=== PATIENT | female | born 1950 | race Caucasian/White ===

== ENCOUNTER 2017-05-26 23:00 | Emergency (ER) | payer MEDICARE ==
[2017-05-27 01:30] VITALS: BP 177/81
--- NOTE | 2017-05-27 04:24 | ED ---
Kyle Dooley Angela, scribed for Vasiliy Neville MD on 05/27/17 at 0001 . Hypertension - HPI Summary HPI Summary: This pt is a 67 y/o female presenting to [facility] c/o high blood pressure today. Pt reports she was sitting down watching TV today when she felt pressure on her face. She took her blood pressure and it was 200/100. Pt states she usually feels pressure on her face when she has elevated blood pressure. Denies chest pain, SOB, nausea, hematuria, difficulty urinating. Pt reports she wrenched her back approximately 1 week ago as she went into her car to brass pickler something. Denies abd pain. PMHx: HTN and stroke (2011). Pt states she takes Lisinopril 30 mg (has been taking it for 1 year now). - History of Current Complaint Chief Complaint: EDHypertension Stated Complaint: HIGH BLOOD PRESSURE Hx Obtained From: Patient Onset/Duration: Started Hours Ago, Still Present Timing: Lasting Hours Reported Blood Pressure Prior To Arrival: 200/100 Aggravating Factor(s): Nothing Alleviating Factor(s): Nothing Associated Signs & Symptoms: Other: - POS: pressure on face. NEG: chest pain, SOB, nausea, hematuria, difficulty urinating. Current Medications: ACEI - Lisinopril - Allergies/Home Medications Allergies/Adverse Reactions: Allergies Allergy/AdvReac Type Severity Reaction Status Date / Time Diphenhydramine Allergy Unknown UNK Verified 05/17/12 10:30 [From Benadryl] Home Medications: Home Medications Lisinopril [Lisinopril] 10 mg PO BEDTIME 05/27/17 [History Confirmed 05/27/17] PMH/Surg Hx/FS Hx/Imm Hx Endocrine/Hematology History: Denies: Hx Diabetes Cardiovascular History: Reports: Hx Hypertension - W/MEDS, Other Cardiovascular Problems/Disorders - CVA Neurological History: Reports: Hx CVA Infectious Disease History: No Infectious Disease History: Denies: Traveled Outside the [place] in Last 30 Days - Family History Known Family History: Positive: Cardiac Disease - CAD - Social History Alcohol Use: None Substance Use Type: Reports: None Hx Tobacco Use: Yes Smoking Status (MU): Never Smoked Tobacco Review of Systems Negative: Fever Cardiovascular: Other - elevated blood pressure Negative: Chest Pain Negative: Shortness Of Breath Negative: Abdominal Pain, Nausea Negative: hematuria, other - difficulty urinating Musculoskeletal: Other - back pain All Other Systems Reviewed And Are Negative: Yes Physical Exam - Summary Physical Exam Summary: Appearance: Well-appearing, no distress, Well-nourished Skin: Warm, color reflects adequate perfusion Head: Normal Head/Face inspection Eyes: Conjunctiva clear ENT: Normal inspection Neck: Supple, no nodes, no JVD. Respiratory: Lungs clear, Normal breath sounds, no respiratory distress Cardio: RRR, No murmur, pulses normal, brisk capillary refill Abdomen: soft, nontender, no guarding, no rebound Bowel sounds: present Musculoskeletal: Strength Intact/ ROM intact. No calf tenderness. No edema. Neuro: Alert, muscle tone normal, facial symmetry, speech normal, sensory/motor intact Psychological: Normal Triage Information Reviewed: Yes Vital Signs On Initial Exam: Initial Vitals Temp Pulse Resp BP Pulse Ox 98.2 F 88 18 199/80 96 05/26/17 23:07 05/26/17 23:07 05/26/17 23:07 05/26/17 23:07 05/26/17 23:07 Vital Signs Reviewed: Yes Diagnostics - Vital Signs Vital Signs Temp Pulse Resp BP Pulse Ox 05/26/17 23:50 78 23 95 05/26/17 23:48 189/91 05/26/17 23:07 98.2 F 88 18 199/80 96 - Laboratory Lab Statement: Any lab studies that have been ordered have been reviewed, and results considered in the medical decision making process. Re-Evaluation - Re-Evaluation First Eval Re-Evaluation Time: 01:13 Change: Improved Comment: Pt resting comfortably in bed. pt copntinues to be asymptomatic with BP 159/80's. Pt will f/u with her PCP tomorrow for repeat BP evaluation. Hypertension Course/Dx - Course Assessment/Plan: Pt with asymptomatic hypertension. pt advised to f.u with her PCP as scheduled tomorrow for repeat evaluation. - Diagnoses Differential Diagnosis/HQI PQRI: Hypertension, Hypertensive Crisis, Hypertensive Urgency Provider Diagnoses: Hypertension Discharge - Sign-Out/Discharge Documenting (check all that apply): Discharge - discharge to home - Discharge Plan Condition: Improved Disposition: HOME Patient Education Materials: Hypertension (ED) Referrals: Jayla Frey MD [Medical Doctor] - 2 Days - Billing Disposition and Condition Condition: IMPROVED Disposition: HOME The documentation as recorded by the Kyle benítez Angela accurately reflects the service I personally performed and the decisions made by , Vasiliy Neville MD.
== END 2017-05-27 01:30 | disposition home or self-care (01) ==
LOC: ED 23:00
DX: I10 Essential (primary) hypertension (principal)
CPT/HCPCS: 99282

== ENCOUNTER 2018-06-01 17:09 | Emergency (ER) | payer MEDICARE ==
--- NOTE | 2018-06-01 17:36 | ED ---
Hypertension - HPI Summary HPI Summary: A 68 y/o female presents to [facility] with a chief complaint of high blood pressure since yesterday. She reports that yesterday she took all of her medications in the morning instead of her usual 2 pills in the morning and 2 pills at night. She takes Lisinopril and Amlodipine. She rates her pain as a 0/10 in severity. She denies CP, SOB or headache. She reports dizziness, claiming that she feels off balance. - History of Current Complaint Chief Complaint: EDHypertension Stated Complaint: BP HIGH,DIZZY PER PT Time Seen by Provider: 06/01/18 17:29 Hx Obtained From: Patient Onset/Duration: Started Hours Ago, Still Present Timing: Constant Reported Blood Pressure Prior To Arrival: 183/78 at triage Aggravating Factor(s): Nothing Alleviating Factor(s): Nothing Associated Signs & Symptoms: Negative - CP, SOB, headache, Dizziness - Allergies/Home Medications Allergies/Adverse Reactions: Allergies Allergy/AdvReac Type Severity Reaction Status Date / Time diphenhydramine Allergy Unknown Verified 06/01/18 17:18 Reaction Details Home Medications: Home Medications Pravastatin Sodium 20 mg PO DAILY 06/01/18 [History Confirmed 06/01/18] amLODIPine TAB* [Norvasc 5 mg TAB*] 2.5 mg PO DAILY 06/01/18 [History Confirmed 06/01/18] PMH/Surg Hx/FS Hx/Imm Hx Endocrine/Hematology History: Denies: Hx Diabetes Cardiovascular History: Reports: Hx Hypertension - W/MEDS, Other Cardiovascular Problems/Disorders - CVA Neurological History: Reports: Hx CVA Infectious Disease History: No Infectious Disease History: Denies: Traveled Outside the [place] in Last 30 Days - Family History Known Family History: Positive: Cardiac Disease - CAD - Social History Alcohol Use: None Substance Use Type: Reports: None Hx Tobacco Use: Yes Smoking Status (MU): Never Smoked Tobacco Review of Systems Negative: Fever Negative: Chest Pain Negative: Shortness Of Breath Neurological: Other - positive: dizziness Negative: Headache All Other Systems Reviewed And Are Negative: Yes Physical Exam - Summary Physical Exam Summary: VITAL SIGNS: Reviewed. GENERAL: Patient is a well-developed and nourished FEMALE who is lying comfortable in the stretcher. Patient is not in any acute respiratory distress. HEAD AND FACE: No signs of trauma. No ecchymosis, hematomas or skull depressions. No sinus tenderness. EYES: PERRLA, EOMI x 2, No injected conjunctiva, no nystagmus. EARS: Hearing grossly intact. Ear canals and tympanic membranes are within normal limits. MOUTH: Oropharynx within normal limits. NECK: Supple, trachea is midline, no adenopathy, no JVD, no carotid bruit, no c- spine tenderness, neck with full ROM. CHEST: Symmetric, no tenderness at palpation LUNGS: Clear to auscultation bilaterally. No wheezing or crackles. CVS: Regular rate and rhythm, S1 and S2 present, no murmurs or gallops appreciated. ABDOMEN: Soft, non-tender. No signs of distention. No rebound no guarding, and no masses palpated. Bowel sounds are normal. EXTREMITIES: FROM in all major joints, no edema, no cyanosis or clubbing. NEURO: Alert and oriented x 3. No acute neurological deficits. Speech is normal and follows commands. SKIN: Dry and warm Triage Information Reviewed: Yes Vital Signs On Initial Exam: Initial Vitals Temp Pulse Resp BP Pulse Ox 98.5 F 77 16 183/78 99 06/01/18 17:15 06/01/18 17:15 06/01/18 17:15 06/01/18 17:15 06/01/18 17:15 Vital Signs Reviewed: Yes - Franko Coma Scale Best Eye Response: 4 - Spontaneous Best Motor Response: 6 - Obeys Commands Best Verbal Response: 5 - Oriented Coma Scale Total: 15 Diagnostics - Vital Signs Vital Signs Temp Pulse Resp BP Pulse Ox 06/01/18 17:15 98.5 F 77 16 183/78 99 - Laboratory Result Diagrams: 06/01/18 17:56 06/01/18 17:56 Lab Statement: Any lab studies that have been ordered have been reviewed, and results considered in the medical decision making process. - Radiology CXR Radiology Interpretation Completed By: ED Physician Summary of Radiographic Findings: No acute pathology. Pending official imaging report. - EKG 18:00 Cardiac Rate: NL EKG Rhythm: Sinus Rhythm Summary of EKG Findings: NSR at [address] elevations T-wave inversion v2 v3, changed from previous EKG done 05/14/13. Hypertension Course/Dx - Course Assessment/Plan: This patient is a 68-year-old female who presents to the emergency department with a chief complaint of having dizziness and increased blood pressure. In the ED course the patient was given lisinopril and amlodipine. The head CT is still pending, the blood work is still pending. Therefore the patient was be signed out to Dr. Larson at shift change to follow- up the CT results on the blood work results. He will reassess for the blood pressure improved. At this point the patient is hemodynamically stable. - Diagnoses Provider Diagnoses: Hypertension, UTI (urinary tract infection) Discharge - Sign-Out/Discharge Documenting (check all that apply): Sign-Out Patient Signing out patient TO: Isra Larson - Pending Brain CT and reassesment of BP Patient Received Moderate/Deep Sedation with Procedure: No - Discharge Plan Condition: Stable Disposition: HOME Prescriptions: Levofloxacin TAB* [Levaquin TAB*] 500 mg PO DAILY #3 tab Patient Education Materials: Urinary Tract Infection in Women (ED), Hypertension (ED) Referrals: [facility] [Outside] [facility] [Outside] Additional Instructions: Follow up with your primary care provider tomorrow as scheduled. RETURN TO THE ED IMMEDIATELY FOR WORSENING OR CONCERNING SYMPTOMS. - Billing Disposition and Condition Condition: STABLE Disposition: Home - Attestation Statements Document Initiated by Scribe: Yes Documenting Scribe: Librado Cleveland Provider For Whom Jessica is Documenting (Include Credential): Bakari Siegel MD Scribe Attestation: Librado Dooley scribed for Bakari Siegel MD on 06/03/18 at 0820. Scribe Documentation Reviewed: Yes Provider Attestation: The documentation as recorded by the Librado benítez accurately reflects the service I personally performed and the decisions made by me, Bakari Siegel MD Status of Scribe Document: Viewed
[2018-06-01] MEDS ORDERED: amLODIPine TAB* 5 MG PO ONE (17:44)
[2018-06-01] MEDS ORDERED: Lisinopril TAB* 5 MG PO ONE (17:44)
[2018-06-01 18:06] LABS: ABS Basophils 0.1 10^3/ul (0-0.2); ABS Eosinophils 0.2 10^3/ul (0-0.6); ABS Monocytes 0.6 10^3/ul (0-0.8); ABS Neutrophils 6.8 10^3/ul (1.5-7.7); ABS Nucleated RBC 0 10^3/ul; Eosinophil % 2.2 %; Hematocrit 43 % (33-41); Hemoglobin 14.2 g/dL (12.0-16.0); Lymphocyte % 20.3 %; Mean Corpuscular HGB Conc 33 g/dL (31-36); Mean Corpuscular Hemoglobin 29 pg (27-31); Mean Corpuscular Volume 87 fL (80-97); Nucleated Red Blood Cells % 0; Platelet Count 302 10^3/uL (150-450); Red Blood Count 4.96 10^6 /uL (3.70-4.87); Red Cell Distribution Width 14 % (10.5-15); White Blood Count 9.6 10^3/uL (3.5-10.8)
[2018-06-01 18:29] LABS: Albumin 4.2 g/dL (3.2-5.2); Albumin/Globulin Ratio 1.2 (1-3); BUN/Creatinine Ratio 17.7 (8-20); Calcium 9.6 mg/dL (8.6-10.3); EGFR African American 87.8 (>60); EGFR Non-African American 72.6 (>60); Globulin 3.5 g/dL (2-4); Potassium 3.6 mmol/L (3.5-5.0); Total Bilirubin 0.3 mg/dL (0.2-1.0); Total Protein 7.7 g/dL (6.4-8.9)
[2018-06-01 18:42] LABS: TSH (Thyroid Stimulating Horm) 4.24 mcIU/mL (0.34-5.60)
[2018-06-01 18:50] LABS: Urine Appearance Cloudy; Urine Bacteria 1+ (Absent); Urine Bilirubin Negative (Negative); Urine Blood 1+ (Negative); Urine Color Straw; Urine Glucose Negative (Negative); Urine Ketones Negative (Negative); Urine Nitrite Negative (Negative); Urine Protein Negative (Negative); Urine Red Blood Cell 1+(3-5/hpf) (Absent); Urine Specific Gravity 1.002 (1.010-1.030); Urine Squamous Epithelial Cell Present (Absent); Urine Urobilinogen Negative (Negative); Urine White Blood Cell 2+(11-20/hpf) (Absent)
--- NOTE | 2018-06-01 19:07 | ED ---
Progress - Progress Note Progress Note: This pt was signed out by Dr. Siegel at shift change, pending disposition, awaiting brain CT and re-evaluation. Brain CT, as read by radiologist IMPRESSION: No acute intracranial abnormality. 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 Dr. Larson has reviewed this report. Re-Evaluation - Re-Evaluation First Eval Re-Evaluation Time: 19:48 Change: Improved Comment: Reviewed results with pt. Pt is feeling better. She states she has an appointment with her PCP tomorrow. Course/Dx - Course Course Of Treatment: This pt was signed out by Dr. Siegel pending brain CT and reevaluation. Brain CT is negative for an acute intracranial abnormality. Urinalysis is consistent with a UTI. On reevaluation pt is feeling better. She states she has an appointment with her PCP tomorrow and will follow up tomorrow. Pt will be discharged home with a prescription for Levaquin. She was instructed to return to the ED for any worsening or new symptoms. - Diagnoses Provider Diagnoses: Hypertension, UTI (urinary tract infection) Discharge - Sign-Out/Discharge Documenting (check all that apply): Patient Departure - Discharge home, Receiving Sign-Out Receiving patient FROM: Bakari Siegel Patient Received Moderate/Deep Sedation with Procedure: No - Discharge Plan Condition: Stable Disposition: HOME Prescriptions: Levofloxacin TAB* [Levaquin TAB*] 500 mg PO DAILY #3 tab Patient Education Materials: Urinary Tract Infection in Women (ED), Hypertension (ED) Referrals: [facility] [Outside] [facility] [Outside] Additional Instructions: Follow up with your primary care provider tomorrow as scheduled. RETURN TO THE ED IMMEDIATELY FOR WORSENING OR CONCERNING SYMPTOMS. - Attestation Statements Document Initiated by Scribe: Yes Documenting Scribe: Billie Wright Provider For Whom Scribe is Documenting (Include Credential): Isra Larson MD Scribe Attestation: Billie Dooley, scribed for Isra Larson MD on 06/01/18 at 1951. Status of Scribe Document: Ready
[2018-06-01] MEDS ORDERED: Levofloxacin 500 MG IVPREMIX(* 500 MG/100 ML BAG IVPB ONE (19:48)
[2018-06-01] MEDS ORDERED: Levofloxacin TAB* 500 MG PO ONE (20:12)
[2018-06-01 20:19] VITALS: BP 157/89
== END 2018-06-01 20:20 | disposition home or self-care (01) ==
LOC: ED 17:09
DX: I10 Essential (primary) hypertension (principal); N39.0 Urinary tract infection, site not specified; R94.31 Abnormal electrocardiogram [ECG] [EKG]; Z88.8 Allergy status to other drugs, medicaments and biological substances; Z79.899 Other long term (current) drug therapy; Z86.73 Personal history of transient ischemic attack (TIA), and cerebral infarction without residual deficits
CPT/HCPCS: 36415; 70450; 71045; 80053; 81003; 81015; 83605; 83735; 84443; 84484; 85025; 87086; 93005; 99283; A9270-GY; J1956